=== PATIENT | male | born 1980 | race Caucasian/White ===

== ENCOUNTER 2016-08-16 07:21 | Emergency (ER) | payer SELFPAY ==
[~2016-08-16] VITALS: Ht 190.5 cm; Wt 138.3 kg
[~2016-08-16 07:21] MED LIST: FLEXERIL10 MG PO; INDOCIN25 MG PO; LISINOPRIL40 MG PO; METFORMIN HCL1000 MG PO; NAPROSYN500 MG PO; NORCO 7.5/321 TABLET PO; TRAMADOL HCL50 MG PO; ULTRAM50 MG PO
[2016-08-16 07:24] VITALS: BP 177/108
[2016-08-16] MEDS ORDERED: DEPRESSION PO (08:01)
[2016-08-16 08:27] LABS: POINT-OF-CARE METER ID UU14100415
[2016-08-16] MEDS ORDERED: PROVENTIL HFA6.7 GM IH (09:11)
[2016-08-16] MEDS ORDERED: PREDNISONE20 MG PO (09:11)
[2016-08-16] MEDS ORDERED: LORATADINE10 M2 PO (09:11)
== END 2016-08-16 09:27 | disposition home or self-care (01) ==
LOC: EME 07:21
PROVIDERS: Physician Assistant
DX: J30.9 Allergic rhinitis, unspecified (principal); J98.01 Acute bronchospasm; Z87.891 Personal history of nicotine dependence
CPT/HCPCS: 71020; 82948; 94640; 99281; 99284; J7512